=== PATIENT | female | born 1975 | race Caucasian/White ===

== ENCOUNTER 2022-03-23 23:00 | Inpatient (IN) ==
[2022-03-24 01:31] LABS: Influenza A PCR Negative (Negative); Influenza B PCR Negative (Negative); Resp. Syncytial Virus PCR Negative (Negative)
[2022-03-24 01:33] LABS: SARS-CoV-2 by PCR (In House) Negative (Negative)
[2022-03-24] MEDS ORDERED: *HR* LORazepam 2 MG/ML VIAL IM PRN (01:57)
[2022-03-24] MEDS ORDERED: Haloperidol Lactate 5 MG/ML VIAL IM PRN (01:57)
[2022-03-24] MEDS ORDERED: *HR* LORazepam 1 MG TABLET PO PRN (01:57)
[2022-03-24] MEDS ORDERED: haloperidoL 5 MG TABLET PO PRN (01:57)
[2022-03-24] MEDS: hydrOXYzine pamoate 25 MG CAPSULE PO PRN ×2 (03:10→21:04)
[2022-03-24] MEDS: Ibuprofen 400 MG TABLET PO PRN ×2 (03:10→21:07)
[2022-03-24] MEDS: traZODone 50 MG TABLET PO PRN ×2 (03:10→21:04)
[2022-03-24] MEDS ORDERED: MOM Conc 10 ML UD.LIQ PO PRN (09:16)
[2022-03-24] MEDS ORDERED: Mag Hydrox/Al Hydrox/Simeth 30 ML UDC PO PRN (09:16)
[2022-03-24] MEDS: Famotidine 20 MG TABLET PO SCH (11:56)
[2022-03-24] MEDS: OLANZapine 5 MG TAB.RAPDIS PO SCH ×2 (11:56→21:04)
[2022-03-24] MEDS: Bisoprolol/HCTZ 2.5/6.25 TABLET PO SCH (11:56)
[2022-03-24] MEDS: Nicotine 21 MG PATCH.TD24 TD SCH (12:13)
[2022-03-24] MEDS: FLUoxetine 20 MG CAPSULE PO SCH (12:13)
[2022-03-25] MEDS: Famotidine 20 MG TABLET PO SCH (09:39)
[2022-03-25] MEDS: Bisoprolol/HCTZ 2.5/6.25 TABLET PO SCH (09:39)
[2022-03-25] MEDS: Ibuprofen 400 MG TABLET PO PRN (09:40)
[2022-03-25] MEDS: FLUoxetine 20 MG CAPSULE PO SCH (09:40)
[2022-03-25] MEDS: Nicotine 21 MG PATCH.TD24 TD SCH (09:40)
[2022-03-25] MEDS: OLANZapine 5 MG TAB.RAPDIS PO SCH (10:06)
[2022-03-25] MEDS ORDERED: OLANZapine 5 MG TAB.RAPDIS PO ONE (11:00)
[2022-03-25] MEDS ORDERED: OLANZapine 10 MG TAB.RAPDIS PO SCH (21:00)
[2022-03-26] MEDS: Bisoprolol/HCTZ 2.5/6.25 TABLET PO SCH (09:00)
[2022-03-26] MEDS: Famotidine 20 MG TABLET PO SCH (09:00)
[2022-03-26] MEDS: FLUoxetine 20 MG CAPSULE PO SCH (09:00)
[2022-03-26] MEDS: OLANZapine 5 MG TAB.RAPDIS PO SCH (09:00)
[2022-03-26] MEDS: Nicotine 21 MG PATCH.TD24 TD SCH (09:01)
[2022-03-26] MEDS ORDERED: OLANZapine 5 MG TAB.RAPDIS PO STA (10:38)
[2022-03-26] MEDS: Multivit/Ca/Min/Fe/FA 1 TAB TABLET PO SCH (17:46)
[2022-03-26] MEDS: traZODone 50 MG TABLET PO PRN (20:39)
[2022-03-26] MEDS: OLANZapine 10 MG TAB.RAPDIS PO SCH (20:40)
[2022-03-26] MEDS: Ibuprofen 400 MG TABLET PO PRN (20:40)
[2022-03-27] MEDS: Nicotine 21 MG PATCH.TD24 TD SCH (10:09)
[2022-03-27] MEDS: FLUoxetine 20 MG CAPSULE PO SCH (10:09)
[2022-03-27] MEDS: OLANZapine 10 MG TAB.RAPDIS PO SCH ×2 (10:10→20:28)
[2022-03-27] MEDS: Famotidine 20 MG TABLET PO SCH (10:10)
[2022-03-27] MEDS: Bisoprolol/HCTZ 2.5/6.25 TABLET PO SCH (10:11)
[2022-03-27] MEDS: Multivit/Ca/Min/Fe/FA 1 TAB TABLET PO SCH (10:15)
[2022-03-27] MEDS: *HR* LORazepam 0.5 MG TABLET PO PRN ×2 (11:24→20:30)
[2022-03-27] MEDS: traZODone 50 MG TABLET PO PRN (22:01)
[2022-03-28] MEDS: Bisoprolol/HCTZ 2.5/6.25 TABLET PO SCH (08:36)
[2022-03-28] MEDS: Multivit/Ca/Min/Fe/FA 1 TAB TABLET PO SCH (08:36)
[2022-03-28] MEDS: FLUoxetine 20 MG CAPSULE PO SCH (08:37)
[2022-03-28] MEDS: Nicotine 21 MG PATCH.TD24 TD SCH (08:37)
[2022-03-28] MEDS: Famotidine 20 MG TABLET PO SCH (08:37)
[2022-03-28] MEDS: *HR* LORazepam 0.5 MG TABLET PO PRN ×2 (08:37→21:44)
[2022-03-28] MEDS: OLANZapine 10 MG TAB.RAPDIS PO SCH ×2 (08:38→20:40)
[2022-03-28] MEDS ORDERED: FLUoxetine 20 MG CAPSULE PO ONE (11:00)
[2022-03-28] MEDS: hydrOXYzine pamoate 25 MG CAPSULE PO PRN (20:38)
[2022-03-28] MEDS: Ibuprofen 400 MG TABLET PO PRN (20:38)
[2022-03-28] MEDS: traZODone 50 MG TABLET PO PRN (20:39)
[2022-03-28] MEDS ORDERED: OLANZapine 5 MG TAB.RAPDIS PO SCH (21:00)
[2022-03-28 22:42] VITALS: O2SAT 98
[2022-03-29] MEDS: Bisoprolol/HCTZ 2.5/6.25 TABLET PO SCH (08:13)
[2022-03-29] MEDS: Multivit/Ca/Min/Fe/FA 1 TAB TABLET PO SCH (08:13)
[2022-03-29] MEDS: Nicotine 21 MG PATCH.TD24 TD SCH (08:13)
[2022-03-29] MEDS: OLANZapine 10 MG TAB.RAPDIS PO SCH (08:14)
[2022-03-29] MEDS: Famotidine 20 MG TABLET PO SCH (08:15)
[2022-03-29] MEDS ORDERED: FLUoxetine 20 MG CAPSULE PO SCH (09:00)
[2022-03-29 09:13] VITALS: BP 125/70; PULSE 78; TEMP 97.8
[2022-03-29] MEDS ORDERED: *HR* LORazepam 0.5 MG TABLET PO ONE (11:18)
[2022-03-29] MEDS: Ibuprofen 400 MG TABLET PO PRN (11:39)
== END 2022-03-29 14:13 | disposition home or self-care (01) | DRG 751 ==
LOC: 1ANU 23:00 → EMEROOARM 23:00 → 1ANU 03-24 02:40
PROVIDERS: ADMIT Psychiatry & Neurology Psychiatry; ATTEND Psychiatry & Neurology Psychiatry

== ENCOUNTER 2022-06-10 16:40 | Inpatient (IN) ==
[2022-06-10] MEDS ORDERED: *HR* LORazepam 0.5 MG TABLET PO ONE (17:36)
[2022-06-10] MEDS ORDERED: haloperidoL 5 MG TABLET PO PRN (18:49)
[2022-06-10] MEDS ORDERED: hydrOXYzine pamoate 25 MG CAPSULE PO PRN (18:49)
[2022-06-10] MEDS ORDERED: Ibuprofen 400 MG TABLET PO PRN (18:49)
[2022-06-10] MEDS ORDERED: Haloperidol Lactate 5 MG/ML VIAL IM PRN (18:49)
[2022-06-10] MEDS ORDERED: *HR* LORazepam 2 MG/ML VIAL IM PRN (18:49)
[2022-06-10] MEDS ORDERED: *HR* LORazepam 1 MG TABLET PO PRN (18:49)
[2022-06-10 19:26] LABS: Influenza A PCR Negative (Negative); Influenza B PCR Negative (Negative); Resp. Syncytial Virus PCR Negative (Negative)
[2022-06-10 19:28] LABS: SARS-CoV-2 by PCR (In House) Negative (Negative)
[2022-06-10] MEDS ORDERED: OLANZapine 10 MG TAB.RAPDIS PO SCH (21:00)
[2022-06-10] MEDS: QUEtiapine Fumarate 25 MG TABLET PO PRN (21:03)
[2022-06-10] MEDS: Nicotine 2 MG GUM BC PRN (21:03)
[2022-06-10] MEDS: Acetaminophen 325 MG TABLET PO PRN (21:03)
[2022-06-10] MEDS: OLANZapine 10 MG TAB.RAPDIS PO SCH (21:04)
[2022-06-10] MEDS: hydrOXYzine pamoate 25 MG CAPSULE PO PRN (21:04)
[2022-06-11] MEDS: Nicotine 14 MG PATCH.TD24 TD SCH (08:41)
[2022-06-11] MEDS: FLUoxetine 20 MG CAPSULE PO SCH (08:42)
[2022-06-11] MEDS: Famotidine 20 MG TABLET PO SCH (08:42)
[2022-06-11] MEDS: Bisoprolol/HCTZ 2.5/6.25 TABLET PO SCH (08:42)
[2022-06-11] MEDS: OLANZapine 10 MG TAB.RAPDIS PO SCH ×2 (08:42→20:55)
[2022-06-11] MEDS: hydrOXYzine pamoate 25 MG CAPSULE PO PRN (20:54)
[2022-06-11] MEDS: QUEtiapine Fumarate 25 MG TABLET PO PRN (20:54)
[2022-06-11] MEDS: Divalproex (24 HR) 500 MG TABLET PO SCH (20:56)
[2022-06-11] MEDS: Nicotine 2 MG GUM BC PRN (20:59)
[2022-06-11] MEDS ORDERED: Divalproex (24 HR) 500 MG TABLET PO SCH (21:00)
[2022-06-12] MEDS: Famotidine 20 MG TABLET PO SCH (08:25)
[2022-06-12] MEDS: FLUoxetine 20 MG CAPSULE PO SCH (08:25)
[2022-06-12] MEDS: Bisoprolol/HCTZ 2.5/6.25 TABLET PO SCH (08:25)
[2022-06-12] MEDS: OLANZapine 10 MG TAB.RAPDIS PO SCH ×2 (08:25→20:50)
[2022-06-12] MEDS: Nicotine 14 MG PATCH.TD24 TD SCH (08:27)
[2022-06-12 10:24] LABS: Estimated Average Glucose 108 mg/dl; Hemoglobin A1C 5.4 %
[2022-06-12] MEDS: Nicotine 2 MG GUM BC PRN ×2 (10:25→20:52)
[2022-06-12] MEDS: Acetaminophen 325 MG TABLET PO PRN ×2 (10:26→20:51)
[2022-06-12] MEDS: hydrOXYzine pamoate 25 MG CAPSULE PO PRN (20:50)
[2022-06-12] MEDS: QUEtiapine Fumarate 25 MG TABLET PO PRN (20:50)
[2022-06-12] MEDS: Divalproex (24 HR) 500 MG TABLET PO SCH (20:51)
[2022-06-13] MEDS: OLANZapine 10 MG TAB.RAPDIS PO SCH ×2 (08:31→21:22)
[2022-06-13] MEDS: Nicotine 14 MG PATCH.TD24 TD SCH (08:31)
[2022-06-13] MEDS: Bisoprolol/HCTZ 2.5/6.25 TABLET PO SCH (08:31)
[2022-06-13] MEDS: Famotidine 20 MG TABLET PO SCH (08:31)
[2022-06-13] MEDS: FLUoxetine 20 MG CAPSULE PO SCH (08:31)
[2022-06-13] MEDS: hydrOXYzine pamoate 25 MG CAPSULE PO PRN ×2 (13:52→21:22)
[2022-06-13] MEDS: Nicotine 2 MG GUM BC PRN ×2 (18:15→21:21)
[2022-06-13] MEDS: Acetaminophen 325 MG TABLET PO PRN (21:21)
[2022-06-13] MEDS: QUEtiapine Fumarate 25 MG TABLET PO PRN (21:21)
[2022-06-13] MEDS: Divalproex (24 HR) 500 MG TABLET PO SCH (21:21)
[2022-06-13 23:06] VITALS: PULSE 75
[2022-06-14] MEDS: Nicotine 14 MG PATCH.TD24 TD SCH (08:49)
[2022-06-14] MEDS: Acetaminophen 325 MG TABLET PO PRN (08:49)
[2022-06-14] MEDS: OLANZapine 10 MG TAB.RAPDIS PO SCH (08:50)
[2022-06-14] MEDS: FLUoxetine 20 MG CAPSULE PO SCH (08:50)
[2022-06-14] MEDS: hydrOXYzine pamoate 25 MG CAPSULE PO PRN ×2 (08:50→14:57)
[2022-06-14] MEDS: Famotidine 20 MG TABLET PO SCH (08:50)
[2022-06-14] MEDS: Bisoprolol/HCTZ 2.5/6.25 TABLET PO SCH (08:50)
[2022-06-14 09:38] VITALS: BP 116/66; TEMP 97.3; O2SAT 100
[2022-06-14] MEDS ORDERED: QUEtiapine Fumarate 25 MG TABLET PO PRN (11:08)
[2022-06-14 11:14] LABS: Albumin 4.3 g/dL (3.5-5.7); Albumin/Globulin Ratio 1.4 (1.1-2.2); Bilirubin,Indirect 0.3 mg/dL (0.0-1.0); Bilirubin,Total 0.3 mg/dL (0.3-1.0); Globulin 3.1 g/dL (2.4-3.5); Total Protein 7.4 g/dL (6.4-8.9)
[2022-06-14] MEDS ORDERED: QUEtiapine Fumarate 100 MG TABLET PO SCH (21:00)
== END 2022-06-14 15:10 | disposition home or self-care (01) | DRG 753 ==
LOC: EMEROOARM 16:40 → 1ANU 20:10
PROVIDERS: ADMIT Psychiatry & Neurology Forensic Psychiatry; ATTEND Psychiatry & Neurology Forensic Psychiatry